=== PATIENT | female | born 1990 | race Caucasian/White ===

== ENCOUNTER 2023-11-12 17:08 | Emergency (ER) | payer MEDICAID, OTHER ==
[~2023-11-12] VITALS: Ht 170.2 cm; Wt 73.7 kg
[2023-11-12 17:47] VITALS: BP 159/66; PULSE 108; RESP 16; TEMP 97.6; O2SAT 98
[2023-11-12] MEDS ORDERED: NAPR-746 PO (18:09)
[2023-11-12] MEDS: ACETAMINOPHEN 500 MG TAB PO ONE (18:24)
== END 2023-11-12 18:26 | disposition home or self-care (01) ==
LOC: ER 17:08
DX: S93.691A Other sprain of right foot, initial encounter (principal); F41.9 Anxiety disorder, unspecified; X50.1XXA Overexertion from prolonged static or awkward postures, initial encounter; Y93.89 Activity, other specified; Y92.89 Other specified places as the place of occurrence of the external cause; Y99.8 Other external cause status
CPT/HCPCS: 73630

== ENCOUNTER 2024-04-14 03:28 | Emergency (ER) | payer OTHER ==
[~2024-04-14] VITALS: Ht 170.2 cm; Wt 75.0 kg
[~2024-04-14 03:28] MED LIST: NAPR-746 PO
--- NOTE | 2024-04-14 03:42 | ED.PDOC ---
Altered Mental Status HPI Comments 34-year-old female came to ER by EMS due to altered level of consciousness. Per EMS, patient was found laying on the hallway floor of [facility]. Patient apparently took Fentanyl and is agitated and disoriented/ confused. No Narcan was given. Patient still confused and disoriented at this time of care, mumbling incomprehensible sounds when questioned. Chief Complaint: ALOC Time Seen by MD: 03:40 Primary Care Provider: NONE Reviewed Notes: [employer] Operator Notes Allergies: Coded Allergies: NO KNOWN ALLERGIES (Unverified , 11/12/23) Home Meds Active Scripts Naproxen (Naproxen) 500 Mg Tab, 500 MG PO BID, #30 TAB Prov:IKE CONSTANTINO 11/12/23 Information Source: Emergency Med Personnel Mode of Arrival: EMS Severity: Unable to Care for Self Timing: Hours Duration: Since onset Quality: Decreased Alertness, Change in Behavior Recent: Medication/Drug Abuse Review of Systems REVIEW OF SYSTEMS: (+) patient confused and disoriented, ALOC Unable to obtain Vital Signs Vital Signs Date Time Temp Pulse Resp B/P (MAP) Pulse Ox O2 Delivery O2 Flow Rate FiO2 04/14/24 03:30 98.6 112 18 121/63 (82) 96 Physical Exam General: Patient pain, easily aroused. Appears lethargic and confused. Skin: Skin in warm, dry and intact. Appropriate color for ethnicity. Nailbeds pink with no cyanosis. HEENT: The head is normocephalic and atraumatic. Conjunctivae are clear without exudates or hemorrhage. Sclera is non-icteric. EOM are intact. No signs of nystagmus. Eyelids are normal in appearance without swelling or lesions. Oral mucosa is pink and moist Neck: The neck is supple with normal range of motion. No JVD. Cardiac: Heart rate and rhythm are normal. No murmurs, gallops, or rubs are auscultated. Respiratory: No signs of respiratory distress. Lung sounds are clear in all lobes bilaterally without rales, ronchi, or wheezes. Abdominal: Abdomen is soft, non-tender without distention. Bowel sounds are present and normoactive in all four quadrants. Extremities: Upper and lower extremities are atraumatic in appearance without deformity or edema. Neurological: Speech is slurred. There is no facial asymmetry. Moving all extremities spontaneously. No apparent neuro deficit. Past Medical History PAST MEDICAL HISTORY: Pt Confused Surgical History: Pt Confused [employer] RN History: Pt Confused Family History Family History: Pt Confused Social History Smoker: Pt Confused Alcohol: Pt Confused Drugs: Pt Confused Lives In: Pt Confused Was a procedure done? Was a procedure done?: No Differential Diagnosis (ALOC) Differential Diagnosis: Encephalopathy, Hypoxemia, Drug Overdose, ETOH Intoxication X-Ray, Labs, Meds, VS Vital Signs Date Time Temp Pulse Resp B/P (MAP) Pulse Ox O2 Delivery O2 Flow Rate FiO2 04/14/24 03:30 98.6 112 18 121/63 (82) 96 Current Medications Medications (Trade) Dose Ordered Sig/Antonella Route Start Time Stop Time Status Last Admin Naloxone HCl (Narcan) 2 mg ONCE ONCE IV 04/14/24 03:45 04/14/24 03:46 DC 04/14/24 03:47 Time of 1ST Reevaluation: 03:36 Reevaluation 1ST: Unchanged Patient Education/Counseling: Diagnosis, Treatment, Other (Confused and disoriented) Family Education/Counseling: No Family Present Departure 1 Departure Time of Disposition: 05:41 Impression: Primary Impression: Opiate overdose Additional Impression: Altered mental status Disposition: 30 STILL A PATIENT Condition: Stable Comments 34-year-old female with possible fentanyl overdose. Narcan administered on arrival. Sign out to oncoming provider pending lab results and continued ED observation, re-evaluation Critical Care Note Critical Care Time?: No Stability Stability form required: No Heart Score Heart Score: Heart Score Response (Comments) Value History N/A 0 EKG N/A 0 Age N/A 0 Risk Factors N/A 0 Troponin N/A 0 Total 0 I personally scribed for RORO BOURGEOIS MD ([email or web address]) on 04/14/24 at 03:42. Electronically submitted by Enrike Magallanes ([email or web address]). RORO BOURGEOIS MD Apr 14, 2024 03:42
[2024-04-14] MEDS: NALOXONE HCL 1MG/ML 2ML SYRINGE IV ONE (03:47)
[2024-04-14] MEDS: NALOXONE HCL 1MG/ML 2ML SYRINGE ONE (03:59)
[2024-04-14] MEDS: NALOXONE HCL 0.4 MG/ML VIAL ONE (03:59)
[2024-04-14 07:30] VITALS: BP 124/85; PULSE 82; RESP 16; TEMP 97; O2SAT 98
== END 2024-04-14 09:48 | disposition left against medical advice (07) ==
LOC: ER 03:28 → EDUNIT# 03:28 → EDBD 03:28 → ER 09:48
DX: T40.601A Poisoning by unspecified narcotics, accidental (unintentional), initial encounter (principal); R41.82 Altered mental status, unspecified; Y92.89 Other specified places as the place of occurrence of the external cause
CPT/HCPCS: 82947; 96374; 99283; J2310